=== PATIENT | female | born 1945 | race Asian ===

== ENCOUNTER 2022-11-16 20:28 | Inpatient (IN) | payer OTHER ==
[~2022-11-16] VITALS: Ht 167.6 cm; Wt 49.9 kg
[2022-11-16 20:32] VITALS: BP 166/98; PULSE 130; RESP 16; TEMP 97.4; O2SAT 98
--- NOTE | 2022-11-16 20:33 | NUR ---
PT ARCHIE ALS. TAKEN TO BED 4
--- NOTE | 2022-11-16 20:35 | NUR ---
PT BROUGHT IN BY ACLS. PT BROUGHT IN C-SPINE PRECAUTIONS S/P UNWITNESSED FALL. BS HIGH. PT AWAITING TO BE SEEN BY MED. NO DISTRESS NOTED AT THIS TIME.
--- NOTE | 2022-11-16 20:44 | NUR ---
Dr. Johnson examining patient.
[2022-11-16] MEDS ORDERED: NACL 0.9% 1,000 ML IV ONE ×2 (20:55→22:50)
[2022-11-16 20:58] LABS: HEMATOCRIT 22.3 % (36-48); HEMOGLOBIN 7.7 g/dL (12.0-16.0); MEAN CORPUSCULAR HEMOGLOBIN 28 pg (27-31); MEAN CORPUSCULAR HGB CONC 34 g/dL (33-37); MEAN CORPUSCULAR VOLUME 81.7 fL (80-94); PLATELET COUNT (AUTO) 554 K/uL (140-450); RED BLOOD CELL COUNT(AUTO) 2.73 MIL/uL (4.20-5.40); RED CELL DISTRIBUTION WIDTH 14.6 % (11.6-13.7); WHITE BLOOD COUNT (AUTO) 10.3 K/uL (4.8-10.8)
--- NOTE | 2022-11-16 20:58 | NUR ---
PT TAKEN TO CT
[2022-11-16 21:06] LABS: PROTHROMBIN TIME 9.8 secs (10.8-13.4)
[2022-11-16 21:10] LABS: ALBUMIN 2.3 g/dL (3.4-5.0); ANION GAP 18.9 (8-16); ASPARTATE AMINOTRANSFERASE 12 U/L (15-37); CHLORIDE 101 mmol/L (98-107); POTASSIUM 4.9 mmol/L (3.5-5.1); SODIUM SERUM 134 mmol/L (136-145); TOTAL BILIRUBIN 0.2 mg/dL (0.0-1.0)
[2022-11-16 21:19] LABS: BASOPHILS % (MANUAL) 0 % (0-2); EOSINOPHILS % (MANUAL) 0 % (0-4); LYMPHOCYTES % (MANUAL) 12 % (20-46); MONOCYTES % (MANUAL) 4 % (5-12)
--- NOTE | 2022-11-16 21:22 | NUR ---
Vianney carreon in [facility] - 11/16/22 at 2127 by BRANDEN X-Ray at bedside.
[2022-11-16 21:23] LABS: GLUCOSE 499 mg/dL (74-106)
[2022-11-16 21:24] LABS: UREA NITROGEN, BLOOD 62 mg/dL (7-18)
--- NOTE | 2022-11-16 21:42 | NUR ---
X-Ray at bedside.
[2022-11-16] MEDS ORDERED: INSULIN LISPRO 100 UNITS/ML VIAL SUBQ ONE ×3 (21:50→22:40)
--- NOTE | 2022-11-16 22:17 | NUR ---
[place] SHAB[place] [facility] [place] STATES BASELINE IS A&O X1-2, AND PT IS NONAMBULATORY. STATES D/T BASELINE PT TENDS TO TRY TO AMBULATE. DAT MEEKS MADE AWARE.
--- NOTE | 2022-11-16 22:20 | NUR ---
Dr. Butt examining patient.
--- NOTE | 2022-11-16 22:42 | NUR ---
5 UNITS OF HUMALOG DRAWN UP AND WITNESSED BY KIESHA OLIVA.
[2022-11-16 23:32] LABS: APPEARANCE,URINE CLEAR (CLEAR); BILIRUBIN,URINE NEGATIVE (NEGATIVE); BLOOD, URINE 1+ (NEGATIVE); COLOR,URINE YELLOW (YELLOW); LEUKOCYTE ESTERASE ,URINE 3+ (NEGATIVE); NITRITE, URINE NEGATIVE (NEGATIVE); UGLUCOSE 3+ (NEGATIVE)
[2022-11-16 23:36] LABS: RBC,URINE 0-5 /HPF (0-5)
[2022-11-17] VITALS (9 sets, daily range): BP systolic 111–157; BP diastolic 60–91; PULSE 20–117; RESP 18–20; TEMP 96.4–97.8; O2SAT 97–100
[2022-11-17] MEDS ORDERED: cefTRIAXone 1,000 MG VIAL ONE (00:18)
[2022-11-17] MEDS ORDERED: ACETAMINOPHEN 325 MG TAB PO PRN (00:25)
[2022-11-17] MEDS ORDERED: NACL 0.9% 1,000 ML IV SCH ×2 (00:25→11:20)
[2022-11-17] MEDS ORDERED: ONDANSETRON 4 MG/2 ML VIAL IVP PRN (00:25)
[2022-11-17] MEDS ORDERED: MORPHINE SULFATE 2 MG/ML SYR IVP PRN (00:25)
[2022-11-17] MEDS ORDERED: HYDROcodone/APAP 5/325 MG 1 TAB TAB PO PRN (00:25)
[2022-11-17] MEDS ORDERED: FERR325E14 PO (00:30)
[2022-11-17] MEDS ORDERED: ATOR40TA40 PO (00:30)
[2022-11-17] MEDS ORDERED: DOCU-299 PO (00:30)
[2022-11-17] MEDS ORDERED: TUBE5SOL28 TD (00:30)
[2022-11-17] MEDS ORDERED: METO25TE2 PO (00:39)
[2022-11-17] MEDS ORDERED: LISI2.5T12 PO (00:39)
[2022-11-17] MEDS ORDERED: INSU100V19 SQ (00:39)
[2022-11-17] MEDS ORDERED: GLIM2TAB PO (00:39)
[2022-11-17] MEDS ORDERED: INSU100V6 SQ (00:39)
[2022-11-17] MEDS ORDERED: DEXTROSE 50% 50 ML SYR IVP PRN (00:45)
[2022-11-17] MEDS: ALBUTEROL 0.083% 2.5 MG/3 ML NEBU INH SCH ×4 (01:00→20:09)
--- NOTE | 2022-11-17 01:10 | NUR ---
Pt report given to MICHELET POP. DETAILED REPORT PROVIDED. ALL QUESTIONS ANSWERED. PT TAKEN BY MENDOZA TO ROOM 107a. PT ESCORTED BY RN TO THE FLOOR. PT TRANSPORTED IN STABLE CONDITION. NO DISTRESS NOTED AT TIME OF TRANSFER. ALL BELONGINGS ARE WITH THE PT.
--- NOTE | 2022-11-17 01:35 | NUR ---
PT TRANSPORTED FROM ER VIA GURNEY. RECEIVED REPORT FROM ER NURSE SHABNAM FOR CONTINUITY OF CARE. PT AWAKE, TAGALOG SPEAKING. RESPIRATIONS EVEN AND UNLABORED ON RA. NO DISTRESS NOTED. V/S AND MRSA TAKEN. NOTED SCABS ON RIGHT HIP. PER PT THEY WERE FROM SURGERY DONE IN [facility]. NOTED REDNESS ON BUTTOCKS. DIAPER AND GOWN WERE CHANGED. PT ABLE TO FOLLOW COMMANDS. PT ORIENTED TO ROOM, UNIT AND ROUTINE. POC DISCUSSED. PT VERBALIZED UNDERSTANDING. CALL LIGHT WITHIN REACH. SAFETY PRECAUTIONS IN PLACE.
[2022-11-17] MEDS ORDERED: Z-GUARD PASTE TP PRN (02:50)
--- NOTE | 2022-11-17 05:20 | NUR ---
MORNING CARE DONE. PT TOLERATED WELL. NO COMPLAINTS OF PAIN. NO DISCOMFORT NOTED. PT WAS REPOSITIONED, LYING COMFORTABLY IN BED.
--- NOTE | 2022-11-17 06:03 | NUR ---
RECEIVED A CALL FROM DAUGHTER SABINO PRIETO. PER DAUGHTER PT WAS SENSITIVE TO HUMALOG. GIVE ONLY UP TO MAXIMUM OF 5 UNITS OF HUMALOG. PT HAD A HISTORY OF PASSING OUT AT [facility] DUE TO HAVING HIGH DOSE OF HUMALOG. DAUGHTER WAS ALSO REQUESTING NOT TO DC PT BACK TO [facility]. DAUGHTER WANTED TO DC PT HOME. WILL ENDORSE TO DAY SHIFT NURSE.
[2022-11-17] MEDS: BLOOD GLUCOSE MONITORING 1 DEV DEV FS SCH ×4 (06:37→20:22)
[2022-11-17] MEDS: INSULIN LISPRO SLIDING SCALE 100 UNITS/ML VIAL SUBQ PRN ×3 (06:38→17:00)
--- NOTE | 2022-11-17 07:05 | NUR ---
receive the patient from the retail shift supervisor rn in rm 107A aox2-3 with episode of confusion admitting diagnosis of urinary tract infection , altered level of consciousness . will continue to monitor
--- NOTE | 2022-11-17 07:09 | NUR ---
GAVE BEDSIDE REPORT TO KIESHA GUERRA FOR CONTINUITY OF CARE. PT IS STABLE. COMMUNICATION WITH DAUGHTER ENDORSED.
--- NOTE | 2022-11-17 09:03 | NUR ---
PATIENT HAS BEEN SCREENED AND CATEGORIZED HIGH NUTRITION RISK. PATIENT WILL BE SEEN WITHIN 1-2 DAYS OF ADMISSION. 11/18/22-11/19/[address]
--- NOTE | 2022-11-17 12:52 | NUR ---
PT IS SLEEPING. NO DISTRESS NOTED OR INDICATION FOR NEB AT THIS TIME. WILL CONTINUE TO MONITOR PT.
--- NOTE | 2022-11-17 19:08 | NUR ---
will endorse to equipment records supervisor rn for continuity of care . will continue with diabetic diet , will continue with D5 1/2 ns at 75 to prevent hypoglycemia
--- NOTE | 2022-11-17 19:17 | NUR ---
RECEIVED PT IN BED ASLEEP, HARD TO AROUSE. BLOOD SUGAR CHECKED -10 MG/DL, D50 GIVEN.
--- NOTE | 2022-11-17 19:25 | NUR ---
PATIENT NO AWAKE, TALKING. BLOOD SUGAR RECHECKED-242.
[2022-11-17] MEDS: DEXT 5% / NACL 0.45% 1,000 ML IV SCH (20:15)
--- NOTE | 2022-11-17 20:25 | NUR ---
SCHEDULED MEDICATIONS GIVEN ORDERED. PROVIDED WITH APPLE SAUCE. BS-153 MG/DL. PATIENT DENIES PAIN. NO ACUTE RESPIRATORY DISTRESS NOTED. SKIN WARM AND DRY TO TOUCH. SAFETY PRECAUTIONS IN PLACE, CALL LIGHT IN REACH. BED ALARM ON.
--- NOTE | 2022-11-17 21:22 | NUR ---
PT ATE SANDWICH AND HAD A CRANBERRY JUICE, PT TOLERATED WELL.
[2022-11-18] VITALS (7 sets, daily range): BP systolic 105–155; BP diastolic 65–80; PULSE 96–108; RESP 18–19; TEMP 98.4–99.3; O2SAT 97–100
--- NOTE | 2022-11-18 | NUR ---
REPOSITIONED PT FOR COMFORT. DENIES PAIN AT THIS TIME. SAFETY PRECAUTIONS IN PLACE, BED ALARM ON. CALL LIGHT WITHIN REACH.
[2022-11-18] MEDS: ALBUTEROL 0.083% 2.5 MG/3 ML NEBU INH SCH ×3 (01:00→13:00)
--- NOTE | 2022-11-18 01:53 | NUR ---
PT WAS SLEEPING COMFORTABLY AND WAS AWAKENED FOR TX. PT REFUSED TX AT THIS TIME WITH CLEAR BREATH SOUNDS. NO DISTRESS NOTED. WILL CONTINUE TO MONITOR. SATTING 97% ON RA.
--- NOTE | 2022-11-18 03:56 | NUR ---
INCONTINENT OF URINE, CLEANED PT. MADE COMFORTABLE IN BED. PT DENIES PAIN.
--- NOTE | 2022-11-18 04:55 | NUR ---
PT MOVED TO 123-B WITH ALL BELONGINGS.
[2022-11-18 06:23] LABS: BASOPHILS % (AUTO) 0.4 % (0.0-2.0); EOSINOPHILS # (AUTO) 0.1 K/uL (0-0.4); EOSINOPHILS % (AUTO) 1.1 % (0.0-4.0); HEMATOCRIT 19.2 % (36-48); HEMOGLOBIN 6.4 g/dL (12.0-16.0); LYMPHOCYTES # (AUTO) 1.5 K/uL (2.5-16.5); LYMPHOCYTES % (AUTO) 15.9 % (20.5-51.1); MEAN CORPUSCULAR HEMOGLOBIN 28 pg (27-31); MEAN CORPUSCULAR HGB CONC 33 g/dL (33-37); MEAN CORPUSCULAR VOLUME 84.3 fL (80-94); MONOCYTES # (AUTO) 0.6 K/uL (0.8-1.0); MONOCYTES % (AUTO) 6.2 % (1.7-9.3); NEUTROPHILS # (AUTO) 7.2 K/uL (1.8-7.7); NEUTROPHILS % (AUTO) 76.4 % (42.2-75.2); PLATELET COUNT (AUTO) 448 K/uL (140-450); RED BLOOD CELL COUNT(AUTO) 2.28 MIL/uL (4.20-5.40); RED CELL DISTRIBUTION WIDTH 15.4 % (11.6-13.7); WHITE BLOOD COUNT (AUTO) 9.4 K/uL (4.8-10.8)
[2022-11-18] MEDS: BLOOD GLUCOSE MONITORING 1 DEV DEV FS SCH ×4 (06:33→20:23)
[2022-11-18] MEDS: INSULIN LISPRO SLIDING SCALE 100 UNITS/ML VIAL SUBQ PRN ×4 (06:34→20:25)
[2022-11-18 06:40] LABS: ALBUMIN 1.8 g/dL (3.4-5.0); ANION GAP 14.8 (8-16); ASPARTATE AMINOTRANSFERASE 13 U/L (15-37); CARBON DIOXIDE 18.3 mmol/L (21-32); CHLORIDE 112 mmol/L (98-107); CREATININE 1.4 mg/dL (0.6-1.3); GLUCOSE 319 mg/dL (74-106); MAGNESIUM 1.5 mg/dL (1.8-2.4); PHOSPHORUS 3.2 mg/dL (2.5-4.9); POTASSIUM 4.1 mmol/L (3.5-5.1); SODIUM SERUM 141 mmol/L (136-145); TOTAL BILIRUBIN 0.2 mg/dL (0.0-1.0); UREA NITROGEN, BLOOD 33 mg/dL (7-18)
[2022-11-18] MEDS: DEXT 5% / NACL 0.45% 1,000 ML IV SCH ×2 (10:14→23:04)
--- NOTE | 2022-11-18 11:23 | NUR ---
DC [age] YRS OLD FEMALE PATIENT WAS ADMITTED FROM [facility] WITH A DX OF ALOC AND UTI. PATIENT HAS A HX OF CKD AND UTI. CERVICAL SPINE CT AND HEAD CT NEGATIVE. CXR SHOWED NO RADIOGRAPHICALLY ACUTE CARDIOPULMONARY DISEASE. US KIDNEY SHOWED MILD BILATERAL HYDRONEPHROSIS. BLOOD CULTURE PENDING. ADMINISTERED IVF, IV ABX ROCEPHIN AND CONTINUED HOME MEDS. CONSULTED WITH NEPHRO. DC PLAN TO RETURN TO [facility] VS HOME WITH HOME HEALTH . RECEIVED A CALL FROM [employer] [phone] STATED PATIENT WILL BE GOING HOME WITH HOME HEALTH. CM TO FOLLOW
--- NOTE | 2022-11-18 13:13 | NUR ---
ROUNDED ON PT FOR TX. NO DISTRESS NOTED. PT IS RESTING COMFORTABLY WITH NO WHEEZES. WILL CONTINUE TO MONITOR.
[2022-11-18] MEDS ORDERED: ALBUTEROL 0.083% 2.5 MG/3 ML NEBU INH PRN (13:20)
--- NOTE | 2022-11-18 14:00 | NUR ---
PT H/H MD ALEXANDRA NOTIFIED. ORDERED 1UNIT PRBC'S. TYPE/SCREEN ORDERED. ATTEMPTED TO OBTAIN CONSENT FROM PT DAUGHTER, DAUGHTER REFUSED. PT DAUGHTER STATES TO JUST MONITOR AND NOTIFY HER OF HER NEXT ROUTINE LAB VALUES. PT DAUGHTER ALSO WANTS PT TO BE DISCHARGED ON MONDAY BECAUSE IT IS HER BIRTHDAY (11/20). PT DAUGHTER ALSO WANTS PT TO DO HOME HEALTH RATHER THAN RETURN TO [facility].
--- NOTE | 2022-11-18 14:11 | NUR ---
WOUND CARE NOTE: SKIN ASSESSMENT DONE ON THIS 76 Y/O PT. AAX4. PER PT. SHE SPEAKS TAGALOG AND ANGOLAN, MADE NEEDS KNOW, PT. ADMITTED WITH BILATERAL BUTTOCKS MASD , SKIN RED, MOIST PEELING , NO OPEN WOUNDS. BLE MULTIPLE SCRATCH [place], PT. DENY ITCHINESS. RIGHT HIP AND LATERAL PELVIC DRY STABLE SCABS, RIGHT KNEE DRY ABRASION 3X3CM. PAIN 0/10. POC DISCUSSED WITH PT. PT. VERBALIZES UNDERSTANDING. POSITION PT. TO SIDE LYING WITH SACRAL AND HEELS OFFLOADING. -APPLY Z GUARD TO BILATERAL BUTTOCKS BID AND PRN IF SOILING TURN AND REPOSITION PATIENT Q 2H OR SOONER USE PILLOWS TO KEEP BONY PROMINENCES FROM DIRECT CONTACT WITH SURFACES USE REPOSITIONING WEDGES TO PROVIDE 30-DEGREE ANGLE FOR SIDE LYING POSITIONS OFFLOADING OR FOAM DRESSING TO ALL TUBING TO PREVENT MEDICAL DEVICES RELATED PRESSURE INJURY -RE-EVALUATING AND MANAGING INCONTINENCE MONITOR SKIN CONDITION DURING POSITION CHANGE DO NOT MASSAGE REDNESS, BONY PROMINENCES, DO NOT USE DONUT-TYPE DEVICES FREQUENT RUTH-CARE AND PROVIDE BARRIER CREAMS PRN IF SOILING MOISTURE CONTROL BY OFFER BED HIGGINS/URINAL /ABSORBENT PAD TO WICK AND HOLD MOISTURE. KEEP SKIN DRY AND PROTECT FROM FRICTION -MANAGE FRICTION/SHEAR/MOBILITY KEEP HOB AT THE LOWEST LEVEL OF ELEVATION NO MORE THAN 30 DEGREES UNLESS OTHERWISE CONTRAINDICATED USE LIFT SHEET OR TRANSFER DEVICE TO MOVE PATIENT AND PREVENT LATERAL SHEER. PROTECT HEELS, ELBOWS BONY PROMINENCES WITH SKIN BERRIES OR FOAM DRESSING IF EXPOSED TO FRICTION OFFLOAD BILATERAL HEELS BY PLACING PILLOWS UNDER CALVES AT ALL TIMES, UNLESS OTHERWISE CONTRAINDICATED -PRESSURE REDISTRIBUTION SURFACE THERAPY SARA ISOFLEX STEPHEN MATTRESS
--- NOTE | 2022-11-18 15:15 | NUR ---
11/18/22 RD INITIAL ASSESSMENT COMPLETED PLEASE REFER TO NUTRITION ASSESSMENT UNDER CARE ACTIVITY FOR ESTIMATED NUTRITIONAL NEEDS. 1. CONTINUE CCHO AND CARDIAC DIET TOLERATED 2. RD WILL CONTINUE TO MONITOR WEIGHT, PO INTAKE, NUTRITION RELATED LABS AND GI ISSUES. 3. RD TO FOLLOW-UP 2-3 DAYS, HIGH RISK KEVIN WOODARD RD Addendum: 11/18/22 at [address] 11/18/22 RD INITIAL ASSESSMENT COMPLETED PLEASE REFER TO NUTRITION ASSESSMENT UNDER CARE ACTIVITY FOR ESTIMATED NUTRITIONAL NEEDS. 1. CONTINUE CCHO AND RENAL DIET TOLERATED 2. RD WILL CONTINUE TO MONITOR WEIGHT, PO INTAKE, NUTRITION RELATED LABS AND GI ISSUES. 3. RD TO FOLLOW-UP 2-3 DAYS, HIGH RISK
--- NOTE | 2022-11-18 16:10 | NUR ---
[employer] COMPUTER LABORATORY TECHNICIAN conducted a Discharge Planning Assessment.
--- NOTE | 2022-11-18 19:30 | NUR ---
ENDORSED TO NIGHTSHIFT NURSE FOR CONTINUITY OF CARE. PT STABLE. MD AWARE OF REFUSAL OF BLOOD TRANSFUSION. NIGHT NURSE AWARE WELL.
--- NOTE | 2022-11-18 19:31 | NUR ---
RECEIVED PT FROM MORNING SHIFT NURSE. PT IS AOX3, BEDREST, ABLE TO VERBALIZE NEEDS AND ABLE TO FOLLOW COMMANDS. PT IS ON ROOM AIR AND ON RENAL/CCHO DIET. PT HAS IV ON RIGHT HAND GAUGE 22 RUNNING WITH D5 1/2NS AT 75ML/HR. PT HAS SCAB ON RIGHT HIP AND ON BILATERAL LOWER LEGS. BLOOD TRANSFUSION WAS REFUSED BY THE DAUGHTER AND DR. FOX WAS AWARE ABOUT IT. NO COMPLAIN OF PAIN. NO S/S OF RESPIRATORY DISTRESS NOTED. ALL SAFETY MEASURES IMPLEMENTED. BED IN LOW POSITION, BED WHEELS ON LOCK AND CALL LIGHT WITHIN REACH.
--- NOTE | 2022-11-18 20:26 | NUR ---
SCHEDULED AND PRESCRIBED MEDICATION WAS GIVEN TO PT PER MD ORDER. PT BLOOD GLUCOSE IS 248. HUMALOG INSULIN 4 UNITS WAS GIVEN TO PT. ALL SAFETY MEASURES IMPLEMENTED. BED IN LOW POSITION, BED WHEELS ON LOCK AND CALL LIGHT WITHIN REACH.
--- NOTE | 2022-11-18 22:00 | NUR ---
CLEANED PT. CHANGED DIAPER AND GOWN. NO COMPLAIN OF PAIN. NO S/S OF RESPIRATORY DISTRESS NOTED. ALL SAFETY MEASURES IMPLEMENTED. BED IN LOW POSITION, BED WHEELS ON LOCK AND CALL LIGHT WITHIN REACH
--- NOTE | 2022-11-19 00:13 | NUR ---
SCHEDULED AND PRESCRIBED MEDICATION WAS GIVEN TO PT PER MD ORDER. ALL SAFETY MEASURES IMPLEMENTED. BED IN LOW POSITION, BED WHEELS ON LOCK AND CALL LIGHT WITHIN REACH
[2022-11-19] MEDS: Z-GUARD PASTE TP SCH ×2 (01:17→13:14)
--- NOTE | 2022-11-19 02:00 | NUR ---
PT IS ON SLEEP. CHEST RISE AND FALL SYMMETRICALLY NOTED. RESPIRATION IS EVEN AND UNLABORED. ALL SAFETY MEASURES IMPLEMENTED. BED IN LOW POSITION, BED WHEELS ON LOCK AND CALL LIGHT WITHIN REACH.
[2022-11-19 04:00] VITALS: BP 149/81; PULSE 101; RESP 18; TEMP 97.8; O2SAT 100
--- NOTE | 2022-11-19 04:00 | NUR ---
MORNING CARE WAS DONE TO PT. CHANGED DIAPER, LINENS, GOWN AND BLANKET. NO COMPLAIN OF PAIN AT THIS TIME. NO S/S OF RESPIRATORY DISTRESS NOTED. ALL SAFETY MEASURES IMPLEMENTED. BED IN LOW POSITION, BED WHEELS ON LOCK AND CALL LIGHT WITHIN REACH.
[2022-11-19 05:43] LABS: ANION GAP 16.5 (8-16); CARBON DIOXIDE 17.1 mmol/L (21-32); CHLORIDE 108 mmol/L (98-107); CREATININE 1.4 mg/dL (0.6-1.3); GLUCOSE 265 mg/dL (74-106); POTASSIUM 4.6 mmol/L (3.5-5.1); SODIUM SERUM 137 mmol/L (136-145); UREA NITROGEN, BLOOD 25 mg/dL (7-18)
--- NOTE | 2022-11-19 06:15 | NUR ---
INSERTED NEW IV ON LEFT HAND GAUGE 24. IV IS PATENT AND INTACT. ALL SAFETY MEASURES IMPLEMENTED. BED IN LOW POSITION, BED WHEELS ON LOCK AND CALL LIGHT WITHIN REACH.
[2022-11-19] MEDS: BLOOD GLUCOSE MONITORING 1 DEV DEV FS SCH ×4 (06:34→20:18)
[2022-11-19] MEDS: INSULIN LISPRO SLIDING SCALE 100 UNITS/ML VIAL SUBQ PRN ×4 (06:35→20:19)
--- NOTE | 2022-11-19 06:35 | NUR ---
PT BLOOD GLUCOSE IS 255. HUMALOG INSULIN 6 UNITS WAS GIVEN TO PT.
--- NOTE | 2022-11-19 07:10 | NUR ---
ASSUMED CONTINUITY OF CARE. INITIAL ASSESSMENT DONE. RE-ORIENTED TO EVENTS AND SURROUNDINGS. KEEP COMFORTABLE ON BED. FALL PRECAUTION APPLIED. CALL LIGHT WITHIN REACH.
--- NOTE | 2022-11-19 07:29 | NUR ---
PT IS STABLE. ENDORSED PT TO MORNING SHIFT NURSE FOR CONTINUITY OF CARE
[2022-11-19 08:00] VITALS: BP 154/71; PULSE 103; PULSE 96; RESP 16; RESP 18; TEMP 97.5; O2SAT 98
--- NOTE | 2022-11-19 08:00 | NUR ---
Patient's Plan of Care was discussed and reviewed with MENTAL HEALTH CONSULTANT: YAMILET
[2022-11-19 08:09] VITALS: O2SAT 100
--- NOTE | 2022-11-19 10:10 | NUR ---
DR. FOX SEEN PT..
--- NOTE | 2022-11-19 11:43 | NUR ---
DR. MONTES SEEN PT. AND PUT ORDER FOR DIFLUCAN PO.
[2022-11-19] MEDS: DEXT 5% / NACL 0.45% 1,000 ML IV SCH ×2 (11:50→14:15)
[2022-11-19] MEDS: FLUCONAZOLE 100 MG TAB PO SCH (12:15)
--- NOTE | 2022-11-19 15:40 | NUR ---
PAGED DR. FOX REGARDING PT. BP 165/82, HR 112, AND 02 SAT 100% ON ROOM AIR. NO ACUTE DISTRESS NOTED. INFORMED CHARGE NURSE LUZ -RN. WILL MONITOR. PT..
--- NOTE | 2022-11-19 15:44 | NUR ---
DR. FOX PAGED BACK AND ORDERED TO JUST MONITOR PT.. NO FURTHER RECEIVED. INFORMED CHARGE NURSE LUZ -RN.
[2022-11-19 16:00] VITALS: BP 165/82; PULSE 112; RESP 16; TEMP 98.6; O2SAT 100
--- NOTE | 2022-11-19 19:05 | NUR ---
REPORT GIVEN TO GABRIELLE SONG FOR CONTINUITY OF CARE. IVF INFUSING WELL. IN STABLE CONDITION.
--- NOTE | 2022-11-19 19:06 | NUR ---
RECEIVED PT FROM MORNING SHIFT NURSE. PT IS AOX3, BEDREST, ABLE TO VERBALIZE NEEDS AND ABLE TO FOLLOW COMMANDS. PT IS ON ROOM AIR AND ON RENAL/CCHO DIET. PT HAS IV ON LEFT HAND GAUGE 24 RUNNING WITH D5 1/2NS AT 75ML/HR. PT HAS SCAB ON RIGHT HIP AND ON BILATERAL LOWER LEGS AND REDNESS ON THE PERINEAL AREA AND ON BUTTOCKS. NO COMPLAIN OF PAIN. NO S/S OF RESPIRATORY DISTRESS NOTED. ALL SAFETY MEASURES IMPLEMENTED. BED IN LOW POSITION, BED WHEELS ON LOCK AND CALL LIGHT WITHIN REACH.
[2022-11-19 19:45] VITALS: O2SAT 99
[2022-11-19 20:00] VITALS: PULSE 122; RESP 18; O2SAT 98
--- NOTE | 2022-11-19 20:19 | NUR ---
SCHEDULED AND PRESCRIBED MEDICATION WAS GIVEN TO PT PER MD ORDER. PT BLOOD GLUCOSE IS 210. HUMALOG INSULIN 4 UNITS WAS GIVEN TO PT. ALL SAFETY MEASURES IMPLEMENTED. BED IN LOW POSITION, BED WHEELS ON LOCK AND CALL LIGHT WITHIN REACH.
--- NOTE | 2022-11-19 20:55 | NUR ---
NOTIFIED DR. FOX REGARDING PT BP OF 164/[address] FOX ORDER HYDRALAZINE IV 10 MG WITH SBP >160 & DBP>95. ORDER WAS MADE AND CARRIED OUT.
[2022-11-19] MEDS ORDERED: hydrALAZINE 20 MG/ML VIAL IVP PRN (21:00)
--- NOTE | 2022-11-19 22:18 | NUR ---
HYDRALAZINE 10MG IVP PRN WAS GIVEN TO PT DUE TO BP-164/75 WITH PULSE OF 122
--- NOTE | 2022-11-19 23:18 | NUR ---
AFTER 1 HR OF GIVING PRN HYDRALAZINE 10MG, PT CURRENT BP-131/74 WITH PULSE OF 118. NO COMPLAIN OF PAIN. NO S/S OF RESPIRATORY DISTRESS NOTED. ALL SAFETY MEASURES IMPLEMENTED. BED IN LOW POSITION, BED WHEELS ON LOCK AND CALL LIGHT WITHIN REACH.
--- NOTE | 2022-11-19 23:57 | NUR ---
SCHEDULED AND PRESCRIBED MEDICATION WAS GIVEN TO PT PER MD ORDER.
[2022-11-20 00:06] VITALS: BP 131/74; PULSE 118; RESP 18; TEMP 98.4; O2SAT 98
[2022-11-20] MEDS: Z-GUARD PASTE TP SCH ×2 (01:28→13:11)
--- NOTE | 2022-11-20 04:00 | NUR ---
MORNING CARE WAS DONE TO PT. CLEANED PT, CHANGED DIAPER, LINENS, GOWN AND BLANKET. ALL SAFETY MEASURES IMPLEMENTED. BED IN LOW POSITION, BED WHEELS ON LOCK AND CALL LIGHT WITHIN REACH.
[2022-11-20 06:12] LABS: BASOPHILS # (AUTO) 0.1 K/uL (0.00-0.22); EOSINOPHILS # (AUTO) 0.2 K/uL (0-0.4); EOSINOPHILS % (AUTO) 2.1 % (0.0-4.0); HEMATOCRIT 21.7 % (36-48); HEMOGLOBIN 7.1 g/dL (12.0-16.0); LYMPHOCYTES # (AUTO) 1.4 K/uL (2.5-16.5); LYMPHOCYTES % (AUTO) 14.8 % (20.5-51.1); MEAN CORPUSCULAR HEMOGLOBIN 28 pg (27-31); MEAN CORPUSCULAR HGB CONC 33 g/dL (33-37); MEAN CORPUSCULAR VOLUME 84.6 fL (80-94); MONOCYTES # (AUTO) 0.6 K/uL (0.8-1.0); MONOCYTES % (AUTO) 6.8 % (1.7-9.3); NEUTROPHILS # (AUTO) 7.1 K/uL (1.8-7.7); NEUTROPHILS % (AUTO) 75.3 % (42.2-75.2); PLATELET COUNT (AUTO) 456 K/uL (140-450); RED BLOOD CELL COUNT(AUTO) 2.57 MIL/uL (4.20-5.40); RED CELL DISTRIBUTION WIDTH 14.9 % (11.6-13.7); WHITE BLOOD COUNT (AUTO) 9.4 K/uL (4.8-10.8)
[2022-11-20 06:23] LABS: ANION GAP 16.3 (8-16); CARBON DIOXIDE 16.8 mmol/L (21-32); CHLORIDE 108 mmol/L (98-107); CREATININE 1.3 mg/dL (0.6-1.3); GLUCOSE 287 mg/dL (74-106); POTASSIUM 4.1 mmol/L (3.5-5.1); SODIUM SERUM 137 mmol/L (136-145); UREA NITROGEN, BLOOD 20 mg/dL (7-18)
[2022-11-20 06:24] LABS: MAGNESIUM 1.4 mg/dL (1.8-2.4); PHOSPHORUS 2.8 mg/dL (2.5-4.9)
[2022-11-20] MEDS: INSULIN LISPRO SLIDING SCALE 100 UNITS/ML VIAL SUBQ PRN ×2 (06:31→12:16)
--- NOTE | 2022-11-20 06:31 | NUR ---
PT BLOOD GLUCOSE IS 301. HUMALOG INSULIN 8 UNITS WAS GIVEN TO PT.
[2022-11-20] MEDS: BLOOD GLUCOSE MONITORING 1 DEV DEV FS SCH ×2 (06:34→12:14)
--- NOTE | 2022-11-20 07:10 | NUR ---
RECEIVED REPORT FROM STUD SETTER NURSE FOR CONTINUITY OF CARE. PT IS STABLE AT THIS TIME.
--- NOTE | 2022-11-20 07:22 | NUR ---
PT IS STABLE. ENDORSED PT TO MORNING SHIFT NURSE FOR CONTINUITY OF CARE.
[2022-11-20 07:43] VITALS: O2SAT 99
[2022-11-20 08:00] VITALS: BP 131/75; PULSE 99; RESP 16; TEMP 98.4; O2SAT 99
--- NOTE | 2022-11-20 08:02 | NUR ---
MESSAGED THE DR BECAUSE TH PATIENTS MAGNESIUM LEVEL IS 1.4 TODAY AND SHE HAS NO STANDING ORDERS. WAITING FOR A RESPONSE.
[2022-11-20] MEDS: FLUCONAZOLE 100 MG TAB PO SCH (08:53)
[2022-11-20] MEDS ORDERED: MAGNESIUM OXIDE 400 MG TAB PO SCH (09:00)
[2022-11-20] MEDS ORDERED: GLIM2TAB PO (10:56)
[2022-11-20] MEDS ORDERED: CEPH-588 PO (10:57)
--- NOTE | 2022-11-20 11:45 | NUR ---
RECEIVED A CALL FROM THE PATIENTS DAUGHTER ASKING IF PATIENT IS BEING DISCHARGED AND WHAT TIME. I LET HER KNOW THAT SHE IS BEING DISCHARGED AND ANYTIME THAT THEY CAN PICK HER UP IS FINE. DAUGHTER INFORMED ME THAT THE BROTHER WOULD BE PICKING HER UP SOMETIME THIS AFTERNOON.
[2022-11-20 13:24] VITALS: BP 131/75; PULSE 99; RESP 16; TEMP 98.4
--- NOTE | 2022-11-20 14:29 | NUR ---
PT IS DISCHARGE AND WAS WHEELED OUT IN A WHEEL CHAIR. PT IS GOING HOME WITH HOME HEALTH.
== END 2022-11-20 14:05 | disposition home health service (06) | DRG 871 ==
LOC: MED 20:28 → MMU 11-17 00:30 → MTU 11-17 00:53
PROVIDERS: ADMIT Student in an Organized Health Care Education/Training Program; ATTEND Student in an Organized Health Care Education/Training Program
DX: A41.9 Sepsis, unspecified organism (principal); G93.41 Metabolic encephalopathy; N17.9 Acute kidney failure, unspecified; N39.0 Urinary tract infection, site not specified; E87.20 Acidosis, unspecified; E78.5 Hyperlipidemia, unspecified; D64.9 Anemia, unspecified; D50.9 Iron deficiency anemia, unspecified; I12.9 Hypertensive chronic kidney disease with stage 1 through stage 4 chronic kidney disease, or unspecified chronic kidney disease; E11.22 Type 2 diabetes mellitus with diabetic chronic kidney disease; N18.9 Chronic kidney disease, unspecified
CPT/HCPCS: 36415; 70450; 71045; 72125; 76770; 80048; 80053; 81001; 82948; 83036; 83735; 84100; 84484; 85025; 85610; 86886; 86900; 86901; 86920; 87040; 87081; 87086; 94640; 94761; 96361; 96372; 96374; 99285; J0360; J0696; J1644; J1815; J7060; J7613; Q0092